=== PATIENT | female | born 2000 | race Caucasian/White ===

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

== ENCOUNTER 2019-02-27 17:09 | Emergency (ER) | payer BC ==
[~2019-02-27] VITALS: Ht 160 cm; Wt 120.3 kg
[~2019-02-27 17:09] MED LIST: HYDR-843 PO; IBUP800T48 PO; RANI15SY; [UNRECOGNIZED DRUG - CODE]
[2019-02-27 17:11] VITALS: Ht 160 cm; Wt 120.3 kg
[2019-02-27] MEDS ORDERED: morphine 4 MG/ML VIAL IV STA (17:30)
[2019-02-27] MEDS ORDERED: SOD CHLORIDE 0.9% 500 ML IV STA (17:30)
[2019-02-27] MEDS ORDERED: ONDANSETRON 4 MG INJ IV STA (17:30)
[2019-02-27] MEDS ORDERED: KETOROLAC 30 MG INJ IV STA (18:49)
[2019-02-27] MEDS ORDERED: RANITIDINE 50 MG in SOD CHLORIDE 0.9% 50 ML IVPB SCH (19:00)
[2019-02-27] MEDS ORDERED: LIDOCAINE/MYLANTA 40 ML BTL PO ONE (19:00)
[2019-02-27] MEDS ORDERED: PANT40TA3 PO (19:27)
[2019-02-27] MEDS ORDERED: ONDA4TAB14 PO (19:27)
[2019-02-27 20:10] VITALS: BP 132/76; PULSE 77; RESP 16
--- NOTE | 2019-02-28 16:00 | ERD ---
ER Documentation Chief Complaint Chief Complaint right quadrant pain radiating epigastric and vomitting x2 hrs HPI 18yo F presents with complaint of RUQ and Epigastric pain x 2hrs with multiple episodes of vomiting. Pt admits to eating a hamburger 3hours [employer] with onset of vomiting and pain shortly after. Pt has taken TUMS with no improvement in symptoms. Rates pain as 9/10, non-radiating. Pain is constant and not improved or exacerbated with certain movements. Pt denies drugs, etoh, tobacco use. Denies consumption of spicy foods, but endorses consumption of greasy, fatty foods regularly. ROS All systems reviewed and are negative except as per history of present illness. Medications Home Meds Active Scripts Pantoprazole* (Protonix*) 40 Mg Tablet.dr, 40 MG PO DAILY for EPIGASTRIC PAIN, #20 TAB Prov:BUTCH FINN PA-C 02/27/19 Ondansetron (Ondansetron Odt) 4 Mg Tab.rapdis, 4 MG PO Q6H PRN for NAUSEA AND/OR VOMITING, #10 TAB Prov:BUTCH FINN PA-C 02/27/19 Ibuprofen* (Motrin*) 800 Mg Tab, 800 MG PO Q6H PRN for PAIN AND OR ELEVATED TEMP, #30 TAB Prov:KARL HOFFMANN 06/29/18 Hydroxyzine Hcl* (Hydroxyzine Hcl*) 25 Mg Tablet, 25 MG PO Q8H PRN for ANXIETY, #30 TAB Prov:HAMMADAMALIAMARIA EMELCHOR F 06/29/18 Reported Medications Acetaminophen (Non Aspirin) 160 Mg/5 Ml Elixir 03/15/11 Ranitidine Hcl* (Ranitidine Hcl*) 15 Mg/Ml Syrup 03/15/11 Allergies Allergies: Coded Allergies: No Known Drug Allergies (Verified Allergy, Mild, 06/28/18) PMhx/Soc Medical and Surgical Hx: pt denies Medical Hx, pt denies Surgical Hx History of Surgery: No Anesthesia Reaction: No Hx Neurological Disorder: No Hx Respiratory Disorders: No Hx Cardiac Disorders: No Hx Psychiatric Problems: No Hx Miscellaneous Medical Probl: No Hx Alcohol Use: No Hx Substance Use: No Hx Tobacco Use: No Smoking Status: Never smoker FmHx Family History: No diabetes, No coronary disease, No other Physical Exam Vitals Vital Signs Date Temp Pulse Resp B/P (MAP) Pulse Ox O2 O2 Flow FiO2 Time Delivery Rate 02/27/19 98.6 77 16 132/76 99 Room Air 20:10 (94) 02/27/19 98.2 67 18 154/97 97 17:11 (116) Physical Exam Const: No acute distress Head: Atraumatic Eyes: Normal Conjunctiva ENT: Normal External Ears, Nose and Mouth. Neck: Full range of motion. No meningismus. Resp: Clear to auscultation bilaterally Cardio: Regular rate and rhythm, no murmurs Abd: Soft, non tender, non distended. Normal bowel sounds Skin: No petechiae or rashes Back: No midline or flank tenderness Ext: No cyanosis, or edema Neur: Awake and alert Psych: Normal Mood and Affect Result Diagram: 02/27/19 1801 02/27/19 180 Results 24 hrs Laboratory Tests Test 02/27/19 18:01 02/27/19 18:57 White Blood Count 17.9 10^3/ul Red Blood Count 4.55 10^6/ul Hemoglobin 13.1 g/dl Hematocrit 40.7 % Mean Corpuscular Volume 89.5 fl Mean Corpuscular Hemoglobin 28.8 pg Mean Corpuscular Hemoglobin Concent 32.2 g/dl Red Cell Distribution Width 13.7 % Platelet Count 354 10^3/UL Mean Platelet Volume 10.5 fl Immature Granulocytes % 0.300 % Neutrophils % 85.4 % Lymphocytes % 10.2 % Monocytes % 3.5 % Eosinophils % 0.2 % Basophils % 0.4 % Nucleated Red Blood Cells % 0.0 /100WBC Immature Granulocytes # 0.050 10^3/ul Neutrophils # 15.3 10^3/ul Lymphocytes # 1.8 10^3/ul Monocytes # 0.6 10^3/ul Eosinophils # 0.0 10^3/ul Basophils # 0.1 10^3/ul Nucleated Red Blood Cells # 0.0 10^3/ul Prothrombin Time 13.2 Sec Prothrombin Time Ratio 1.0 INR International Normalized Ratio 0.99 Activated Partial Thromboplast Time 28.2 Sec Urine Color YELLOW Urine Clarity SLIGHTLY CLOUDY Urine pH 6.0 Urine Specific [place] 1.024 Urine Ketones TRACE mg/dL Urine Nitrite NEGATIVE mg/dL Urine Bilirubin NEGATIVE mg/dL Urine Urobilinogen NEGATIVE mg/dL Urine Leukocyte Esterase NEGATIVE Sarath/ul Urine Microscopic RBC 48 /HPF Urine Microscopic WBC 5 /HPF Urine Squamous Epithelial Cells FEW /HPF Urine Bacteria FEW /HPF Urine Mucus FEW /HPF Urine Hemoglobin 3+ mg/dL Urine Glucose NEGATIVE mg/dL Urine Total Protein 1+ mg/dl Sodium Level 144 mmol/L Potassium Level 4.2 mmol/L Chloride Level 108 mmol/L Carbon Dioxide Level 23 mmol/L Anion Gap 13 Blood Urea Nitrogen 17 mg/dl Creatinine 0.61 mg/dl Est Glomerular Filtrat Rate mL/min > 60 mL/min Glucose Level 123 mg/dl Calcium Level 9.8 mg/dl Total Bilirubin 0.3 mg/dl Direct Bilirubin 0.00 mg/dl Indirect Bilirubin 0.3 mg/dl Aspartate Amino Transf (AST/SGOT) 25 IU/L Alanine Aminotransferase (ALT/SGPT) 22 IU/L Alkaline Phosphatase 127 IU/L Total Protein 8.4 g/dl Albumin 4.5 g/dl Globulin 3.90 g/dl Albumin/Globulin Ratio 1.15 Lipase 108 U/L POC Beta HCG, Qualitative NEGATIVE Current Medications Medications Dose Sig/Francis Start Time Status Last (Trade) Ordered Route PRN Stop Time Admin Dose Reason Admin Sodium 500 ml @ Q1H STAT 02/27/19 DC 02/27/19 Chloride 500 mls/hr IV 17:30 18:17 02/27/19 18:29 Morphine 4 mg ONCE STAT 02/27/19 DC 02/27/19 Sulfate IV 17:30 18:17 (morphine) 02/27/19 17:35 Ondansetron 4 mg ONCE STAT 02/27/19 DC 02/27/19 HCl (Zofran IV 17:30 18:17 Inj) 02/27/19 17:35 Ketorolac 30 mg ONCE STAT 02/27/19 DC Tromethamine IV 18:49 (Toradol) 02/27/19 18:51 Ranitidine 52 ml @ ONCE IVPB 02/27/19 DC 02/27/19 HCl 50 104 mls/hr 19:00 19:17 mg/Sodium 02/27/19 20:18 Chloride 40 ml ONCE ONCE 02/27/19 DC 02/27/19 Miscellaneous PO 19:00 19:17 Medication 02/27/19 19:01 (Gi Cocktail (2)) Procedures/MDM PROCEDURE: US Abdomen. FINDINGS: The liver demonstrates increased echogenicity. The liver is enlarged in size and no focal solid lesions are seen. The liver measures 18.7 cm in length. The portal vein is patent with normal direction of flow. No intrahepatic biliary dilatation is seen. No gallstones are identified within the gallbladder. There is no pericholecystic fluid or gallbladder wall thickening. The common bile duct measures 3.4 mm in maximal dimension. The pancreas is not well seen due to overlying bowel gas. No free fluid is identified. The right kidney is normal in size, and demonstrate normal echogenicity and cortical thickness. The right kidney measures 11.8 cm in long dimension. There is no evidence of hydronephrosis. There are no kidney stones. IMPRESSION: Hepatomegaly with fatty infiltration of the liver. No evidence of gallstones. MDM: Patient was seen and examined, triage note and the nursing notes were reviewed. I agree with back closer, except for where my documentation differs. All imaging studies, and laboratory analysis were reviewed by me (when ordered). Previous records and medication list were reviewed when available.VS noted. Patient had extensive evaluation, including laboratory and ancillary studies. Labs and ancillary tests were reviewed and no critical abnormalities were noted, other than a white count of 17. No evidence of infectious etiology, no evidence of metabolic derangement or electrolyte abnormalities. Pt received 4mg morphine and zofran while in ED with no improvement in symptoms upon re- evaluation. Pt received ranitidine and GI cocktail and when re-evaluated noted cessation of pain/discomfort. The patients condition improved during their stay after the administration of medications and serial evaluations with stable vital signs upon re-evaluation. At this time there is no infectious or surgical abdominal emergency found based on unremarkable labs. Pt stable for discharge at this time and will be discharged with Zofran and Protonix. Counseled pt regarding strict ED return precautions and advised to return within 8-12 hours if symptoms do not improve. Close PCP follow-up in 24 hours was reinforced. Pt expressed verbal understanding and agreement to treatment plan. All questions addressed and answered. Departure Diagnosis: Primary Impression: Epigastric pain Condition: Stable Patient Instructions: Gerd (Adult), Epigastric Pain (Uncertain Cause) Additional Instructions: You have been diagnosed with epigastric pain. Your labs and imaging today did not show a cause of your pain. However, your pain improved with use of GI cocktail and ranitidine-an antiacid. US did not show gallstones. You are to return to the ED within 8-12 hours if you symptoms persist or worsen for further work-up and management. BUTCH FINN PA-C February 28, 2019 16:00
== END 2019-02-27 20:17 | disposition home or self-care (01) ==
LOC: FTE 17:09
DX: R10.13 Epigastric pain (principal); R11.10 Vomiting, unspecified; R10.2 Pelvic and perineal pain
CPT/HCPCS: 36415; 76705; 80053; 81001; 81025; 83690; 85025; 85610; 85730; 96374; 96375; 99285; J2270; J2405; J2780; J7040; Z7610